=== PATIENT | female | born 1945 | race Asian ===

== ENCOUNTER 2016-10-30 14:48 | Emergency (ER) | payer OTHER ==
[2016-10-30 18:16] LABS: BASOPHIL % 0.4 % (0-2)
[2016-10-30 18:29] LABS: PLATELET COUNT 430 x10^3mcL (130-400); RED CELL DISTRIBUTION WIDTH 14.8 % (11.5-14.5)
[2016-10-30 18:39] LABS: CALCIUM 8.7 mg/dL (8.5-10.1); CARBON DIOXIDE 25.5 mmol/L (21-32); CHLORIDE SERUM 97 mmol/L (98-107); CREATININE SERUM 0.6 mg/dL (0.6-1.0); GLUCOSE SERUM 100 mg/dL (74-106); POTASSIUM SERUM 3.7 mmol/L (3.5-5.1); SODIUM SERUM 132 mmol/L (136-145)
[2016-10-30 18:44] LABS: ALBUMIN 2.9 g/dL (3.4-5.0); ALKALINE PHOSPHATASE 62 U/L (46-116); ALT/SGPT 18 U/L (14-59); AST/SGOT 12 U/L (15-37); BILIRUBIN TOTAL 0.44 mg/dL (0.20-1.00); TOTAL PROTEIN, SERUM 7.1 g/dL (6.4-8.2)
[2016-10-30 19:26] LABS: ERYTHROCYTE SED RATE 84 mm/hr (0-30)
[2016-10-30 21:28] VITALS: BP 127/89
== END 2016-10-30 21:28 | disposition short-term general hospital (02) ==
LOC: ED 14:48
PROVIDERS: Specialist
DX: M46.46 Discitis, unspecified, lumbar region (principal); K21.9 Gastro-esophageal reflux disease without esophagitis; E03.9 Hypothyroidism, unspecified; I10 Essential (primary) hypertension; E78.00 Pure hypercholesterolemia, unspecified
CPT/HCPCS: J0696; J1885; J3010; J3370; Q0162; Q9967